=== PATIENT | male | born 1950 | race Caucasian/White ===

== ENCOUNTER 2020-05-20 15:05 | Outpatient (REF) | payer MEDICARE, SELFPAY ==
--- NOTE | 2020-05-20 15:24 | XR_ITS ---
EXAMINATION: XR FOOT, LEFT CLINICAL INFORMATION: Plantar fascitis. Evaluate for heel spur. COMPARISON: None TECHNIQUE: AP, lateral, and oblique views of the left foot. FINDINGS: Bone alignment is normal. No fracture or dislocation is seen. 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 There are mild degenerative changes at the tibiotalar joint. Joint spaces are otherwise normal. There is a plantar calcaneal spur. There is soft tissue arterial calcification. 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 Plantar calcaneal spur.
== END 2020-05-20 15:06 | disposition home or self-care (01) ==
LOC: HO.XRAY 15:05
PROVIDERS: PCP Nurse Practitioner Family; Visit Provider Podiatrist
DX: M72.2 Plantar fascial fibromatosis (principal)
CPT/HCPCS: 73630

== ENCOUNTER 2022-01-08 15:32 | Outpatient (REF) | payer MEDICARE, SELFPAY ==
--- NOTE | ~2022-01-08 | XR_ITS ---
EXAMINATION: XR SHOULDER, LEFT CLINICAL INFORMATION: Pain COMPARISON: None TECHNIQUE: Three views of the left shoulder. FINDINGS: No acute fracture or dislocation is seen. There is question of old trauma to the distal clavicle/coracoclavicular ligament. There is mild arthritis at the glenohumeral joint. There is arthritis at the acromioclavicular joint. There is soft tissue calcification adjacent to the greater tuberosity suggestive of calcific tendinitis. XR/XR shoulder LT min 2V IMPRESSION: No acute fracture or dislocation. Question old trauma to the left distal clavicle/coracoclavicular ligament. Arthritis and soft tissue calcification adjacent to the greater tuberosity.
== END 2022-01-08 15:33 | disposition home or self-care (01) ==
LOC: HO.HMGCX 15:32
PROVIDERS: Visit Provider Physician Assistant
DX: M25.512 Pain in left shoulder (principal)
CPT/HCPCS: 73030

== ENCOUNTER 2022-04-18 11:06 | Emergency (ER) | payer MEDICARE, SELFPAY ==
--- NOTE | ~2022-04-18 | XR_ITS ---
EXAMINATION: XR CHEST CLINICAL INFORMATION: Chest pain COMPARISON: None TECHNIQUE: Frontal view of the chest was obtained. FINDINGS: No significant abnormality is noted involving the heart, lungs, mediastinum, bony thorax or soft tissues. There are degenerative changes of the spine. XR/XR chest 1V IMPRESSION: No evidence for acute disease in the chest.
--- NOTE | 2022-04-18 11:21 | ECG_ITS ---
Test Reason : CP Blood Pressure : / mmHG Vent. Rate : 053 BPM Atrial Rate : 053 BPM P-R Int : 162 ms QRS Dur : 092 ms QT Int : 450 ms P-R-T Axes : 000 062 052 degrees QTc Int : 422 ms Sinus bradycardia Otherwise normal ECG No previous ECGs available Referred By: Generic ED Physician Electronically Signed By:RASHAD HALLMAN
[2022-04-18 11:36] VITALS: BP 138/70; PULSE 54; RESP 19; TEMP 37.2; O2SAT 99; BMI 26.6
[2022-04-18 11:44] LABS: MANUAL DIFF FLAG NO
[2022-04-18 11:46] LABS: Basophils Percent Auto 0.2 % (0-2); Eosinophils Absolute Auto 0.1 X10*3/uL (0.0-0.4); Eosinophils Percent Auto 1.2 % (0-4); Hemoglobin 15.2 g/dl (14.0-18.0); Imm Gran Abs Auto 0.01 X10*3/uL (0.00-0.03); Imm Gran Pct Auto 0.2 % (0.0-0.4); Lymphocytes Absolute Auto 1.9 X10*3/uL (1.2-4.9); Lymphocytes Percent Auto 37.7 % (20-40); Mean Corpuscular HGB Conc 34.5 g/dl (31.0-36.0); Mean Corpuscular Hemoglobin 31.6 pg (27.0-33.0); Mean Corpuscular Volume 91.5 fL (80.0-98.0); Monocytes Absolute Auto 0.4 X10*3/uL (0.1-1.2); Neutrophils Absolute Auto 2.8 x10*3/uL (2.0-8.3); Neutrophils Percent Auto 53.7 % (45-73); Platelet Count 215 X10*3/uL (160-400); Red Blood Count 4.81 X10*6/uL (4.60-5.80); White Blood Count 5.1 X10*3/uL (4.8-10.8)
[2022-04-18 11:59] LABS: Anion Gap 15 (12-20); Blood Urea Nitrogen 15 mg/dL (9-16); Carbon Dioxide 25 mmol/L (22-29); Chloride 103 mmol/L (96-108); Creatinine Clr Calc Pharmacy 66.2; Estimated Glomerular Filt Rate > 60; Glucose Random 206 mg/dL (60-115); Potassium 4.3 mmol/L (3.3-5.1); Sodium 139 mmol/L (135-145)
[2022-04-18 12:04] LABS: Troponin-I High Sensitivity 6.5 ng/L (<3.5-35.0)
--- NOTE | 2022-04-18 15:32 | ED_ITS ---
HPI - Chest Pain General Chief Complaint: Chest Pain Stated Complaint: Chest pain/Weakness Time Seen by Provider: 04/18/22 15:32 Source: patient Mode of arrival: ambulatory Limitations: no limitations History of Present Illness HPI narrative: Patient is a 71 year old male presenting to the emergency department today with chest pain. Patient states that he tested positive for COVID a week ago and over the last few days he has had chest pain when breathing. Patient states that it is epigastric pain and much worse with breathing. Patient denies any dizziness, lightheadedness, abdominal pain, nausea, vomiting, fever, chills, blurry vision, double vision, loss of vision, difficulty breathing, shortness of breath, back pain, night sweats, pain with urination, increased urinary frequency, increased urinary urgency, blood in his urine or stool, syncope or a near syncopal episode, recent trauma or falls, bowel incontinence, bladder incontinence, bowel retention, bladder retention, or any other complaints at this time. MD complaint: chest pain Pain radiation: none Severity: mild Pain scale (0-10): 2 Relieving factors: nothing Exacerbating factors: nothing Treatment prior to arrival: none Related Data Home Medications Medication Instructions Recorded Confirmed flash glucose sensor (FreeStyle 01/08/22 Lloyd 14 Day Sensor kit) insulin aspart U-100 100 unit/mL 1 sliding scale dose subcut 01/08/22 (3 mL) subcutaneous pen (Novolog USEASDIRECTD Flexpen U-100 Insulin aspart) insulin glargine 100 unit/mL (3 12 unit subcut BID 01/08/22 mL) subcutaneous pen (Lantus Solostar U-100 Insulin) metformin 500 mg tablet 500 mg PO DAILY 01/08/22 Previous Rx's Medication Instructions Recorded cyclobenzaprine 10 mg tablet 10 mg PO BEDTIME PRN muscle spasm 01/08/22 #14 tabs Allergies Allergy/AdvReac Type Severity Reaction Status Date / Time shrimp Allergy Anaphylaxis Verified 04/18/22 11:36 Review of Systems Constitutional: Constitutional: Reports no additional constitutional complaints, Denies chills, Denies fever(s) and Denies night sweats Eyes: Eyes: Reports no additional eye complaints, Denies blurry vision, Denies change in vision, Denies diplopia, Denies eye discharge, Denies loss of vision and Denies eye pain ENT: Denies dizziness Cardiovascular: Cardiovascular: Reports no additional cardiovascular complaints, Reports chest pain, Denies lightheadedness, Denies Loss of Consciousness and Denies dyspnea Respiratory: Respiratory: Reports no additional respiratory complaints and Denies dyspnea Gastrointestinal: Gastrointestinal: Reports no additional gastrointestinal complaints, Denies abdominal pain, Denies melena, Denies hematochezia, Denies change in bowel habits and Denies change in stool character Genitourinary: Genitourinary: Reports no additional male genitourinary complaints, Denies hematuria, Denies oliguria, Denies difficulty urinating, Denies dysuria, Denies urinary frequency, Denies urinary hesitancy, Denies urinary incontinence and Denies urinary urgency Musculoskeletal: Musculoskeletal: Reports no additional musculoskeletal complaints, Denies numbness and Denies tingling Neurologic: Denies dizziness, Denies loss of vision, Denies numbness and Denies tingling Psychiatric: Psychiatric: Reports no additional psychiatric complaints Endocrine: Endocrine: Reports no additional endocrine complaints Hematologic/Lymphatic: Hematologic/Lymphatic: Reports no additional hematologic/lymphatic complaints Allergic/Immunologic: Allergic/Immunologic: Reports no additional allergic/immunologic complaints PMFSH Past Medical History Attestation statement: The following information was validated with the patient. Source: old records reviewed Social History Social History Advance Directives: No Advance Directives Information Provided: No Physical Exam Vital Signs: Vital Signs: Last Vital Signs Temp 98.9 F 04/18/22 11:36 Pulse 54 04/18/22 11:36 Resp 19 04/18/22 11:36 BP 138/70 04/18/22 11:36 Pulse Ox 99 04/18/22 11:36 O2 Del Method 04/18/22 11:36 BMI result Body Mass Index 26.6 Const: General: cooperative, no acute distress, alert and awake Nutritional Appearance: well nourished Orientation/consciousness: patient oriented x3 Limitations: no limitations HEENT: Head: Yes normal to inspection and Yes atraumatic Ears: hearing grossly normal bilaterally and external ears normal General nose exam: Normal external nose present, no nasal discharge noted and no epistaxis Face and sinus: Yes normal facial exam, No abrasion and No laceration Mouth: Normal oral and palatal mucosa present, no drooling and no muffled voice Eyes: General: appearance normal, both eyes and all related structures Periorbital: periorbital findings normal Eyelids: Yes eyelids normal Conjunctivae: conjunctivae normal Pupils: Equal, round and reactive pupils present EOM: EOMs intact bilaterally Neck: Neck: Yes normal visual inspection, Yes full ROM and Yes no lymphadenopathy Chest: Chest palpation & inspection: normal inspection of the chest Resp: Effort & Inspection: normal respiratory effort and able to speak in complete sentences Auscultation: clear to auscultation bilaterally Cardio: Rate: regular rate Rhythm: regular rhythm GI: Inspection: Yes normal to inspection Neuro: General: patient oriented x3 and moves all extremities Cranial nerves: Yes Equal, round and reactive pupils present Cognition (Neuro): normal cognition Motor exam (neuro): 5/5 motor strength present throughout Sensory Exam: Normal double simultaneous stimulation for sensation Coordination: [id number] test normal Extrem: General: Yes normal to inspection, Yes full ROM and Yes capillary refill normal Psych: Appearance: grossly normal Mental Status: mental status grossly normal Affect: normal affect Attitude: cooperative Thought process: Normal thought process present Thought content: Normal thought content present Insight: Good insight present (Psych) MDM - Chest Pain MDM Narrative Medical decision making narrative: Patient is a 71 year old male presenting to the emergency department today with chest pain. Patient's physical exam was unremarkable. Patient's blood work was unremarkable. Patient's EKG was unremarkable. Patient's chest x-ray showed no acute process. I explained my physical exam findings as well as all test results to the patient. I answered all questions asked by the patient. I stressed the importance of the patient taking his medication as prescribed. I stressed the importance of the patient following up with his primary care provider. I stressed the importance of the patient returning to the emergency department immediately if his symptoms were to worsen or if he were to develop any dizziness, shortness of breath, difficulty breathing, chest pain, blurry vision, loss of vision, nausea, vomiting, abdominal pain, fever, chills, back pain, or any other complaints. Patient verbalized agreement and understanding with this treatment plan and discharge. Differential Diagnosis Differential diagnosis: Likely atypical chest pain and costochondritis Medical Records Data Attestation: I reviewed the patient's medical records. Lab Data Attestation: I reviewed the patient's lab results. Result diagrams: 04/18/22 11:39 04/18/22 11:39 Labs: Lab Results 04/18/22 04/18/22 04/18/22 Range/Units 11:39 11:39 11:39 WBC 5.1 (4.8-10.8) X10*3/uL RBC 4.81 (4.60-5.80) X10*6/uL Hgb 15.2 (14.0-18.0) g/dl Hct 44.0 (42.0-52.0) % MCV 91.5 (80.0-98.0) fL MCH 31.6 (27.0-33.0) pg MCHC 34.5 (31.0-36.0) g/dl RDW 12.0 (11.0-16.0) % Plt Count 215 (160-400) X10*3/uL MPV 10.0 (9.4-12.4) fL Immature Gran % (Auto) 0.2 (0.0-0.4) % Neut % (Auto) 53.7 (45-73) % Lymph % (Auto) 37.7 (20-40) % [place] % (Auto) 7.0 (2-11) % Eos % (Auto) 1.2 (0-4) % Baso % (Auto) 0.2 (0-2) % Lymph # (Auto) 1.9 (1.2-4.9) X10*3/uL [place] # (Auto) 0.4 (0.1-1.2) X10*3/uL Eos # (Auto) 0.1 (0.0-0.4) X10*3/uL Baso # (Auto) 0.0 (0.0-0.2) X10*3/uL Abs Immat Gran (auto) 0.01 (0.00-0.03) X10*3/uL Absolute Neuts (auto) 2.8 (2.0-8.3) x10*3/uL Absolute Nucleated RBC 0.000 (0.0-0.012) X10*3/uL Nucleated RBC % (auto) 0.0 (0.0-0.2) /100WBC Sodium 139 (135-145) mmol/L Potassium 4.3 (3.3-5.1) mmol/L Chloride 103 (96-108) mmol/L Carbon Dioxide 25 (22-29) mmol/L Anion Gap 15 (12-20) BUN 15 (9-16) mg/dL Creatinine 0.95 (0.5-1.4) mg/dL Estim Creat Clear Calc 66.2 Estimated GFR > 60 Random Glucose 206 H (60-115) mg/dL Calcium 9.0 (8.4-10.2) mg/dL Troponin I High Sens 6.5 (<3.5-35.0) ng/L 04/18/22 Range/Units 15:54 WBC (4.8-10.8) X10*3/uL RBC (4.60-5.80) X10*6/uL Hgb (14.0-18.0) g/dl Hct (42.0-52.0) % MCV (80.0-98.0) fL MCH (27.0-33.0) pg MCHC (31.0-36.0) g/dl RDW (11.0-16.0) % Plt Count (160-400) X10*3/uL MPV (9.4-12.4) fL Immature Gran % (Auto) (0.0-0.4) % Neut % (Auto) (45-73) % Lymph % (Auto) (20-40) % [place] % (Auto) (2-11) % Eos % (Auto) (0-4) % Baso % (Auto) (0-2) % Lymph # (Auto) (1.2-4.9) X10*3/uL [place] # (Auto) (0.1-1.2) X10*3/uL Eos # (Auto) (0.0-0.4) X10*3/uL Baso # (Auto) (0.0-0.2) X10*3/uL Abs Immat Gran (auto) (0.00-0.03) X10*3/uL Absolute Neuts (auto) (2.0-8.3) x10*3/uL Absolute Nucleated RBC (0.0-0.012) X10*3/uL Nucleated RBC % (auto) (0.0-0.2) /100WBC Sodium (135-145) mmol/L Potassium (3.3-5.1) mmol/L Chloride (96-108) mmol/L Carbon Dioxide (22-29) mmol/L Anion Gap (12-20) BUN (9-16) mg/dL Creatinine (0.5-1.4) mg/dL Estim Creat Clear Calc Estimated GFR Random Glucose (60-115) mg/dL Calcium (8.4-10.2) mg/dL Troponin I High Sens 4.6 (<3.5-35.0) ng/L Imaging Data Chest x-ray: Attestation: I personally reviewed and interpreted this imaging study as follows: My impression: No acute process. Radiologist's impression: EXAMINATION: XR CHEST CLINICAL INFORMATION: Chest pain COMPARISON: None TECHNIQUE: Frontal view of the chest was obtained. FINDINGS: No significant abnormality is noted involving the heart, lungs, mediastinum, bony thorax or soft tissues. There are degenerative changes of the spine. XR/XR chest 1V IMPRESSION: No evidence for acute disease in the chest. Dictated By: Maddy Encinas MD Signed By: Electronically signed by Maddy Encinas MD 04/18/22 1219 ECG Data ECG #1: Attestation: I personally reviewed and interpreted this ECG as follows: ECG interpretation date: 04/18/22 ECG interpretation time: 11:31 Prior ECG tracings: not available for review Interpretation: Vent. Rate: 053 BPM ? ? Atrial Rate: 053 BPM P-R Int: 162 ms? QRS Dur: 092 ms QT Int: 450 ms ? ? ? P-R-T2Axes: 000 062 052 degrees QTc Int: 422 ms ? Sinus bradycardia Otherwise normal ECG No previous ECGs available DD/ 1131 Discharge Plan Discharge Clinical Impression: Chest pain, pleuritic Patient Disposition: Home, Self-Care Instructions: Pleurisy (ED) Additional Instructions: Follow up with your primary care provider. Return to the emergency department immediately if your symptoms worsen or if you develop any dizziness, shortness of breath, difficulty breathing, chest pain, blurry vision, loss of vision, nausea, vomiting, abdominal pain, fever, chills, back pain, or any other complaints. Prescriptions: No Action (DME) FreeStyle Lloyd 14 Day Sensor Kit See Rx Instructions .ROUTE Rx Instructions: As directed insulin glargine [Lantus Solostar U-100 Insulin] 100 unit/mL (3 mL) insulin pen 12 unit subcut BID insulin aspart U-100 [Novolog Flexpen U-100 Insulin] 100 unit/mL (3 mL) insulin pen 1 sliding scale dose subcut USEASDIRECTD metformin 500 mg tablet 500 mg PO DAILY cyclobenzaprine 10 mg tablet 10 mg PO BEDTIME PRN (Reason: muscle spasm) Qty: 14 0RF Referrals: Etienne Wesley [employer] [Primary Care Provider] - Interventions: ED Discharge Assessment Last Done: 04/18/22 16:51 Discharge Date/Time: 04/18/22 16:52 Print Language: Pakistani
[2022-04-18 16:21] LABS: Troponin-I High Sensitivity 4.6 ng/L (<3.5-35.0)
== END 2022-04-18 16:52 | disposition home or self-care (01) ==
PROVIDERS: Physician Assistant Medical; Emergency Provider Internal Medicine; PCP Nurse Practitioner Family
DX: R07.89 Other chest pain (principal); R07.81 Pleurodynia; E11.9 Type 2 diabetes mellitus without complications; Z79.899 Other long term (current) drug therapy; Z79.4 Long term (current) use of insulin
CPT/HCPCS: 36415; 71045; 80048; 84484; 85025; 93005; 99283

== ENCOUNTER 2022-12-08 13:16 | Emergency (ER) | payer OTHER, MEDICARE, SELFPAY ==
--- NOTE | ~2022-12-08 | XR_ITS ---
EXAMINATION: XR WRIST, RIGHT CLINICAL INFORMATION: Pain. Rule out fracture. COMPARISON: None available. TECHNIQUE: PA, lateral, and oblique views of the right wrist. FINDINGS: Bone alignment is normal. No fracture or dislocation. Joint spaces are normal. There may be periarticular osteopenia. There are small increased soft tissue densities seen in the dorsal wrist on the lateral view. There is soft tissue arterial calcification. XR/XR wrist RT 2V IMPRESSION: Small increased densities in the dorsal soft tissues of the wrist. Clinical correlation to exclude soft tissue foreign body.
--- NOTE | ~2022-12-08 | XR_ITS ---
EXAMINATION: XR CHEST CLINICAL INFORMATION: Shortness of breath COMPARISON: Frontal view chest 04/18/2022; radiographs left shoulder 01/08/2022 TECHNIQUE: 2 views of the chest were obtained. FINDINGS: The lungs are clear. There is no pneumothorax, pleural reaction, airspace consolidation, groundglass opacity. No hyperinflation. The costophrenic sulci are clear. The heart is normal in size. The hilar and mediastinal contours are unremarkable. No visible acute bony abnormality. XR/XR chest 2V IMPRESSION: Unremarkable examination.
--- NOTE | ~2022-12-08 | CT_ITS ---
EXAMINATION: CT CHEST WITHOUT CONTRAST CLINICAL INFORMATION: Worsening shortness of breath COMPARISON: Chest x-ray of same day. TECHNIQUE: Multidetector volumetric CT imaging of the chest was done. Axial MIP volume rendering provided. Sagittal and coronal reformatted images were obtained. This CT examination was performed using dose optimization techniques as appropriate, variously including the following: *Automated exposure control *Adjustment of mA and/or kV according to patient size (this includes techniques or standardized protocols for targeted exams where dose is matched to indication/reason for exam; i.e. extremities or head) *Use of iterative reconstruction technique DLP: 281 mGy-cm FINDINGS: LUNGS: Central airways are patent. There is some mild bronchial wall thickening present bilaterally. No bronchiectasis is seen. No confluent parenchymal disease. No significant changes of emphysema are seen. Sub-4 mm densities are present with no suspicious lung mass identified. MEDIASTINUM: Heart normal size. No pericardial effusion. No thoracic aortic aneurysm. There is nonocclusive calcified plaque seen within the aortic arch. Visualized thyroid gland appears unremarkable. There are prominent mediastinal lymph nodes present but with only subcarinal lymph nodes measuring 1.1 cm diameter being pathologically enlarged. No hilar lymphadenopathy is appreciated. CORONARY ARTERY CALCIFICATION: Prominent coronary artery calcification is present. PLEURA: There is no pleural effusion. No pleural mass or thickening. AXILLA: No lymphadenopathy. UPPER ABDOMEN: There is an 8 x 7 cm upper pole cyst of the right kidney measuring fluid density in Hounsfield units and not requiring imaging follow-up. OSSEOUS STRUCTURES: No suspicious destructive bony lesions identified. Multilevel degenerative disc disease disease is seen as well as right shoulder degenerative change. CT/CT chest wo IV con IMPRESSION: No significant parenchymal disease identified. Mild subcarinal lymphadenopathy. Large right renal cyst. Fleischner guidelines were followed.
[2022-12-08 13:19] VITALS: BP 171/68; PULSE 69; RESP 18; TEMP 36.1; O2SAT 97; BMI 25.8
--- NOTE | 2022-12-08 13:21 | ED_ITS ---
HPI - SOB/Dyspnea General Chief Complaint: General Medical <ALAN Barrett - Last Filed: 12/08/22 13:26> Stated Complaint: rib pain/ SOB <ALAN Barrett - Last Filed: 12/08/22 13:26> Time Seen by Provider: 12/08/22 16:06 <ALAN Barrett - Last Filed: 12/08/22 13:26> Source: patient <Mirna Mendes MD - Last Filed: 04/11/23 21:20> Mode of arrival: ambulatory <Mirna Mendes MD - Last Filed: 04/11/23 21:20> Limitations: no limitations <Mirna Mendes MD - Last Filed: 04/11/23 21:20> History of Present Illness HPI Narrative: Patient comes to the emergency room complaining of bilateral lower rib pain for 4-5 weeks. Patient states that he has noted that when he goes up the stairs, he becomes short of breath. Patient states that about 4-5 weeks ago he also started cutting down trees, rolling them and it has been a lot of work. Patient denies any chest pain. Patient states that the pain has gradually gotten much worse over the last week. Also, prior to arrival, patient had a mechanical fall and fell on an outstretched hand. Patient complaining of right wrist pain. Patient denies hitting his head, no loss of consciousness, patient is not on blood thinners <Mirna Mendes MD - Last Filed: 04/11/23 21:20> Related Data Home Medications: Home Medications Medication Instructions Recorded Confirmed flash glucose sensor (FreeStyle 01/08/22 Lloyd 14 Day Sensor kit) insulin aspart U-100 100 unit/mL 1 sliding scale dose subcut 01/08/22 (3 mL) subcutaneous pen (Novolog USEASDIRECTD FlexPen U-100 Insulin aspart) insulin glargine 100 unit/mL (3 12 unit subcut BID 01/08/22 mL) subcutaneous pen (Lantus Solostar U-100 Insulin) metformin 500 mg tablet 500 mg PO DAILY 01/08/22 Previous Rx's Medication Instructions Recorded cyclobenzaprine 10 mg tablet 10 mg PO BEDTIME PRN muscle spasm 01/08/22 #14 tabs <ALAN Barrett - Last Filed: 12/08/22 13:26> Allergies/Adverse Reactions: Allergies Allergy/AdvReac Type Severity Reaction Status Date / Time shrimp Allergy Anaphylaxis Verified 12/08/22 13:23 <ALAN Barrett - Last Filed: 12/08/22 13:26> Review of Systems 2 Review of Systems: Constitutional : No Weight loss, No Fever, No Chills, No Night Sweats, No Fatigue, No Malaise ENT/Mouth : No Hearing loss, No Ear Pain, No Nasal Congestion, No Sinus Pain, No Hoarseness, No sore throat, No Rhinorrhea, No Swallowing Difficulty Eyes: No Eye Pain, No Swelling, No Redness, No Foreign Body, No Discharge, No Vision Changes Cardiovascular : No Chest Pain, no orthopnea, no palpitations, no lower extremity edema, complaining of bilateral rib pain with deep inspirations Respiratory : No Cough, No Sputum, No Wheezing, No Smoke Exposure, complaining of exertional Dyspnea Gastrointestinal : No Nausea, No Vomiting, No Diarrhea, No Constipation, No abdominal Pain, No Hematochezia, No Melena Genitourinary : no irregular bleeding, No Dysuria, No Urinary Frequency, No Hematuria, No Urinary Incontinence, No Urgency, No Flank Pain, No Urinary Flow Changes, No Hesitancy Musculoskeletal : Complaining of right wrist pain, Complaining of bilateral lower rib pain, No joint pain, No Myalgias, No Joint Swelling Skin : No Skin Lesions, No rash Neuro : No Weakness, No Numbness, No Paresthesias, No Loss of Consciousness, No Dizziness, No Headache Psych : No Anxiety/Panic, No Depression, No SI/HI/AH/VH, No Social Issues, Heme/Lymph: No Bruising, No Bleeding,No Lymphadenopathy Endocrine : No Polyuria, No Polydipsia, No Temperature Intolerance <Mirna Mendes MD - Last Filed: 04/11/23 21:20> [facility] Past Medical History Medical History: Medical History (Updated 12/09/22 @ 00:45 by Сергей Linder) Diabetes <ALAN Barrett - Last Filed: 12/08/22 13:26> Social History Social History: Social History Smoked in Last 30 Days: No Use of substances other than those prescribed or required for medical reasons: No Advance Directives: No Advance Directives Information Provided: No <ALAN Barrett - Last Filed: 12/08/22 13:26> Physical Exam 2 Vital Signs: Vital Signs: Last Vital Signs Temp 97.0 F 12/08/22 13:19 Pulse 69 12/08/22 13:19 Resp 18 12/08/22 13:19 BP 171/68 H 12/08/22 13:19 Pulse Ox 97 12/08/22 13:19 O2 Del Method Room Air 12/08/22 13:19 BMI result Body Mass Index 25.8 <ALAN Barrett - Last Filed: 12/08/22 13:26> Vital Signs: Last Vital Signs Temp 97.0 F 12/08/22 13:19 Pulse 69 12/08/22 13:19 Resp 18 12/08/22 13:19 BP 171/68 H 12/08/22 13:19 Pulse Ox 97 12/08/22 13:19 O2 Del Method Room Air 12/08/22 13:19 BMI result Body Mass Index 25.8 <Mirna Mendes MD - Last Filed: 04/11/23 21:20> Const: Other: Appearance: Alert. Oriented X3. No acute distress. Eyes: Pupils equal, round and reactive to light. ENT: Pharynx normal. Neck: Normal inspection. Neck supple. No lymph nodes noted. No crepitus CVS: Normal heart rate and rhythm. Pulses normal. Normal S1 and S2 Respiratory: No respiratory distress. Breath sounds normal. No Wheezing. No rales Abdomen: Soft and nontender. No rigidity. No distention. Musculoskeletal: Pain to palpation in lateral aspect of ribs bilaterally, right wrist looks within normal limits, no swelling, able to flex extend. Skin: Skin warm and dry. Normal skin color. Normal skin turgor. Extremities: No lower extremity edema. No Lacerations. No Rash Neuro: Oriented X 3. No motor deficit. No sensory deficit. Moving all extremities. No slurred speech. CN 2 through 12 grossly intact Psych: calm, cooperative, normal affect <Mirna Mendes MD - Last Filed: 04/11/23 21:20> Course Course Course Narrative: RME Patient is a 72 yo male with a PMH of diabetes and hypertension presenting for shortness of breath, bilateral lower rib pain right greater than left for 3-4 weeks. He reports significant tenderness to the bilateral lower ribs, unable to sleep on his side, worse with deep breath. He was doing a lot of tree cutting, but has no trauma. He has also been weak and SOB with exertion. He does not have nausea. hypertensive in triage but no tachycardia or hypoxia. Plan: Chest xray, CBC, CMP, coags, EKG <ALAN Barrett - Last Filed: 12/08/22 13:26> Medical Decision Making Medical Decision Making [facility] Narrative: -my interpretation of CT chest: No fractures, no pneumonia -patient's vital stable, oxygen saturation 97% on room air even with exertion. -patient's source of pain likely musculoskeletal. -patient declined pain medication or muscle relaxants. Patient states that he takes too many medications at home and would prefer to only take Tylenol and ibuprofen which she has at home, respecfuly declined a prescription. <Mirna Mendes MD - Last Filed: 04/11/23 21:20> Lab Data [facility] Lab Attestation statement: I reviewed the patient's lab results. <Mirna Mendes MD - Last Filed: 04/11/23 21:20> Result Diagrams: 12/08/22 13:34 12/08/22 13:34 <ALAN Barrett - Last Filed: 12/08/22 13:26> Labs: Lab Results 12/08/22 Range/Units 13:34 WBC 7.0 (4.8-10.8) X10*3/uL RBC 4.56 L (4.60-5.80) X10*6/uL Hgb 14.4 (14.0-18.0) g/dl Hct 42.1 (42.0-52.0) % MCV 92.3 (80.0-98.0) fL MCH 31.6 (27.0-33.0) pg MCHC 34.2 (31.0-36.0) g/dl RDW 12.5 (11.0-16.0) % Plt Count 235 (160-400) X10*3/uL MPV 9.3 L (9.4-12.4) fL Immature Gran % (Auto) 0.3 (0.0-0.4) % Neut % (Auto) 56.0 (45-73) % Lymph % (Auto) 31.1 (20-40) % [place] % (Auto) 8.3 (2-11) % Eos % (Auto) 3.7 (0-4) % Baso % (Auto) 0.6 (0-2) % Lymph # (Auto) 2.2 (1.2-4.9) X10*3/uL [place] # (Auto) 0.6 (0.1-1.2) X10*3/uL Eos # (Auto) 0.3 (0.0-0.4) X10*3/uL Baso # (Auto) 0.0 (0.0-0.2) X10*3/uL Abs Immat Gran (auto) 0.02 (0.00-0.03) X10*3/uL Absolute Neuts (auto) 3.9 (2.0-8.3) x10*3/uL Absolute Nucleated RBC 0.000 (0.0-0.012) X10*3/uL Nucleated RBC % (auto) 0.0 (0.0-0.2) /100WBC PT 11.1 (10.0-13.1) SEC INR 1.0 (0.9-1.1) APTT 30.3 (26.0-36.4) SEC Sodium 139 (135-145) mmol/L Potassium 4.1 (3.3-5.1) mmol/L Chloride 105 (96-108) mmol/L Carbon Dioxide 26 (22-29) mmol/L Anion Gap 12 (12-20) BUN 19 H (9-16) mg/dL Creatinine 0.78 (0.5-1.4) mg/dL Estim Creat Clear Calc 82.3 Estimated GFR > 60 Random Glucose 129 H (60-115) mg/dL Calcium 9.4 (8.4-10.2) mg/dL Magnesium 2.1 (1.6-2.6) mg/dL Total Bilirubin 0.8 (0.0-1.0) mg/dL Direct Bilirubin 0.2 (0.0-0.5) mg/dL AST 18 (5-37) U/L ALT 18 (0-40) U/L Alkaline Phosphatase 56 (39-117) U/L Troponin I High Sens < 2.7 (<3.5-35.0) ng/L B-Natriuretic Peptide 44 (<100) pg/mL Total Protein 6.9 (6.5-8.0) g/dL Albumin 4.3 (3.5-5.0) g/dL <ALAN Barrett - Last Filed: 12/08/22 13:26> Lab Results 12/08/22 Range/Units 13:34 WBC 7.0 (4.8-10.8) X10*3/uL RBC 4.56 L (4.60-5.80) X10*6/uL Hgb 14.4 (14.0-18.0) g/dl Hct 42.1 (42.0-52.0) % MCV 92.3 (80.0-98.0) fL MCH 31.6 (27.0-33.0) pg MCHC 34.2 (31.0-36.0) g/dl RDW 12.5 (11.0-16.0) % Plt Count 235 (160-400) X10*3/uL MPV 9.3 L (9.4-12.4) fL Immature Gran % (Auto) 0.3 (0.0-0.4) % Neut % (Auto) 56.0 (45-73) % Lymph % (Auto) 31.1 (20-40) % [place] % (Auto) 8.3 (2-11) % Eos % (Auto) 3.7 (0-4) % Baso % (Auto) 0.6 (0-2) % Lymph # (Auto) 2.2 (1.2-4.9) X10*3/uL [place] # (Auto) 0.6 (0.1-1.2) X10*3/uL Eos # (Auto) 0.3 (0.0-0.4) X10*3/uL Baso # (Auto) 0.0 (0.0-0.2) X10*3/uL Abs Immat Gran (auto) 0.02 (0.00-0.03) X10*3/uL Absolute Neuts (auto) 3.9 (2.0-8.3) x10*3/uL Absolute Nucleated RBC 0.000 (0.0-0.012) X10*3/uL Nucleated RBC % (auto) 0.0 (0.0-0.2) /100WBC PT 11.1 (10.0-13.1) SEC INR 1.0 (0.9-1.1) APTT 30.3 (26.0-36.4) SEC Sodium 139 (135-145) mmol/L Potassium 4.1 (3.3-5.1) mmol/L Chloride 105 (96-108) mmol/L Carbon Dioxide 26 (22-29) mmol/L Anion Gap 12 (12-20) BUN 19 H (9-16) mg/dL Creatinine 0.78 (0.5-1.4) mg/dL Estim Creat Clear Calc 82.3 Estimated GFR > 60 Random Glucose 129 H (60-115) mg/dL Calcium 9.4 (8.4-10.2) mg/dL Magnesium 2.1 (1.6-2.6) mg/dL Total Bilirubin 0.8 (0.0-1.0) mg/dL Direct Bilirubin 0.2 (0.0-0.5) mg/dL AST 18 (5-37) U/L ALT 18 (0-40) U/L Alkaline Phosphatase 56 (39-117) U/L Troponin I High Sens < 2.7 (<3.5-35.0) ng/L B-Natriuretic Peptide 44 (<100) pg/mL Total Protein 6.9 (6.5-8.0) g/dL Albumin 4.3 (3.5-5.0) g/dL <Mirna Mendes MD - Last Filed: 04/11/23 21:20> Radiology Impression Discussion of test interpretation with radiology: I have reviewed the radiologist's reading. <Mirna Mendes MD - Last Filed: 04/11/23 21:20> Radiologist Impression: FINDINGS: LUNGS: Central airways are patent. There is some mild bronchial wall thickening present bilaterally. No bronchiectasis is seen. No confluent parenchymal disease. No significant changes of emphysema are seen.? Sub-4 mm densities are present with no suspicious lung mass identified. MEDIASTINUM: Heart normal size. No pericardial effusion. No thoracic aortic aneurysm. There is nonocclusive calcified plaque seen within the aortic arch. Visualized thyroid gland appears unremarkable. There are prominent mediastinal lymph nodes present but with only subcarinal lymph nodes measuring 1.1 cm diameter being pathologically enlarged. No hilar lymphadenopathy is appreciated. CORONARY ARTERY CALCIFICATION: Prominent coronary artery calcification is present. PLEURA: There is no pleural effusion. No pleural mass or thickening.? AXILLA: No lymphadenopathy.? UPPER ABDOMEN: There is an 8 x 7 cm upper pole cyst of the right kidney measuring fluid density in Hounsfield units and not requiring imaging follow-up.? OSSEOUS STRUCTURES: No suspicious destructive bony lesions identified. Multilevel degenerative disc disease disease is seen as well as right shoulder degenerative change.? CT/CT chest wo IV con IMPRESSION: No significant parenchymal disease identified. ? Mild subcarinal lymphadenopathy. ? Large right renal cyst.? Bone alignment is normal. No fracture or dislocation. Joint spaces are normal. There may be periarticular osteopenia. There are small increased soft tissue densities seen in the dorsal wrist on the lateral view.? There is soft tissue arterial calcification. XR/XR wrist RT 2V IMPRESSION: Small increased densities in the dorsal soft tissues of the wrist. Clinical correlation to exclude soft tissue foreign body. <Mirna Mendes MD - Last Filed: 04/11/23 21:20> Discharge Plan Discharge Clinical Impression: Musculoskeletal pain <ALAN Barrett - Last Filed: 12/08/22 13:26> Patient Disposition: Home, Self-Care <ALAN Barrett - Last Filed: 12/08/22 13:26> Instructions: Musculoskeletal Pain (ED) <ALAN Barrett - Last Filed: 12/08/22 13:26> Additional Instructions: Your x-ray of the wrist shows normal bone alignment, no fracture or dislocation. The CT scan of the chest did not show any acute abnormalities. Please follow-up with your primary care physician tomorrow. If you have any worsening or new symptoms, please return to the emergency room or call 911 <ALAN Barrett - Last Filed: 12/08/22 13:26> Prescriptions: No Action (DME) FreeStyle Lloyd 14 Day Sensor Kit See Rx Instructions .ROUTE Rx Instructions: As directed insulin glargine [Lantus Solostar U-100 Insulin] 100 unit/mL (3 mL) insulin pen 12 unit subcut BID insulin aspart U-100 [Novolog FlexPen U-100 Insulin] 100 unit/mL (3 mL) insulin pen 1 sliding scale dose subcut USEASDIRECTD metformin 500 mg tablet 500 mg PO DAILY cyclobenzaprine 10 mg tablet 10 mg PO BEDTIME PRN (Reason: muscle spasm) Qty: 14 0RF <ALAN Barrett - Last Filed: 12/08/22 13:26> Interventions: ED Discharge Assessment Last Done: 12/08/22 17:41 <ALAN Barrett - Last Filed: 12/08/22 13:26> Discharge Date/Time: 12/08/22 17:41 <ALAN Barrett - Last Filed: 12/08/22 13:26>
--- NOTE | 2022-12-08 13:24 | ECG_ITS ---
Test Reason : SOB Blood Pressure : / mmHG Vent. Rate : 053 BPM Atrial Rate : 053 BPM P-R Int : 182 ms QRS Dur : 092 ms QT Int : 438 ms P-R-T Axes : -22 051 041 degrees QTc Int : 410 ms Sinus bradycardia Otherwise normal ECG When compared with ECG of 18-APR-2022 11:31, No significant change was found Referred By: Kendal Ibanez Electronically Signed By:Asher Hayden
[2022-12-08 13:42] LABS: MANUAL DIFF FLAG NO
[2022-12-08 13:43] LABS: Basophils Percent Auto 0.6 % (0-2); Eosinophils Absolute Auto 0.3 X10*3/uL (0.0-0.4); Eosinophils Percent Auto 3.7 % (0-4); Hematocrit 42.1 % (42.0-52.0); Hemoglobin 14.4 g/dl (14.0-18.0); Imm Gran Abs Auto 0.02 X10*3/uL (0.00-0.03); Imm Gran Pct Auto 0.3 % (0.0-0.4); Lymphocytes Absolute Auto 2.2 X10*3/uL (1.2-4.9); Lymphocytes Percent Auto 31.1 % (20-40); Mean Corpuscular HGB Conc 34.2 g/dl (31.0-36.0); Mean Corpuscular Hemoglobin 31.6 pg (27.0-33.0); Mean Corpuscular Volume 92.3 fL (80.0-98.0); Mean Platelet Volume 9.3 fL (9.4-12.4); Monocytes Absolute Auto 0.6 X10*3/uL (0.1-1.2); Monocytes Percent Auto 8.3 % (2-11); Neutrophils Absolute Auto 3.9 x10*3/uL (2.0-8.3); Platelet Count 235 X10*3/uL (160-400); Red Blood Count 4.56 X10*6/uL (4.60-5.80); Red Cell Distribution Width 12.5 % (11.0-16.0)
[2022-12-08 13:51] LABS: Prothrombin Time 11.1 SEC (10.0-13.1)
[2022-12-08 13:54] LABS: Partial Thromboplastin Time 30.3 SEC (26.0-36.4)
[2022-12-08 14:02] LABS: Alanine Aminotransferase 18 U/L (0-40); Albumin Level 4.3 g/dL (3.5-5.0); Alkaline Phosphatase 56 U/L (39-117); Anion Gap 12 (12-20); Aspartate Amino Transferase 18 U/L (5-37); Bilirubin Direct 0.2 mg/dL (0.0-0.5); Bilirubin Total 0.8 mg/dL (0.0-1.0); Blood Urea Nitrogen 19 mg/dL (9-16); Calcium 9.4 mg/dL (8.4-10.2); Carbon Dioxide 26 mmol/L (22-29); Chloride 105 mmol/L (96-108); Creatinine Clr Calc Pharmacy 82.3; Estimated Glomerular Filt Rate > 60; Glucose Random 129 mg/dL (60-115); Magnesium 2.1 mg/dL (1.6-2.6); Potassium 4.1 mmol/L (3.3-5.1); Sodium 139 mmol/L (135-145); Total Protein 6.9 g/dL (6.5-8.0)
[2022-12-08 14:07] LABS: B Type Natriuretic Peptide 44 pg/mL (<100)
[2022-12-08 14:21] LABS: Troponin-I High Sensitivity < 2.7 ng/L (<3.5-35.0)
== END 2022-12-08 17:41 | disposition home or self-care (01) ==
PROVIDERS: Physician Assistant; Emergency Provider Emergency Medicine
DX: R06.02 Shortness of breath (principal); R07.81 Pleurodynia; M79.10 Myalgia, unspecified site; M54.6 Pain in thoracic spine; M25.531 Pain in right wrist; Z79.899 Other long term (current) drug therapy
CPT/HCPCS: 36415; 71046; 71250; 73100; 80048; 80076; 83735; 83880; 84484; 85025; 85610; 85730; 93005; 99284

== ENCOUNTER 2023-12-27 07:06 | Day surgery (SDC) | payer OTHER, SELFPAY ==
[2023-09-30 09:23] VITALS: BMI 26.2
--- NOTE | 2023-09-30 14:05 | P.CONAN_ITS ---
HPI - Anesthesia Eval Consult details Narrative: 72yo M for Colonoscopy Pending cardiac w/u Anesthesia Pre-Procedure Meds Is the patient on any of the following meds?: Any other SGL-1 drugs or drugs that delay gastric emptying (Jardiance) [facility] Past Medical History Medical History (Updated 09/30/23 @ 09:41 by Vale Hurley RN) Chest pain Hypogonadism, male Elevated cholesterol Hypothyroid HTN (hypertension) Diabetes Surgical History Surgical History (Updated 09/30/23 @ 09:23 by Vale Hurley RN) Hx of appendectomy Hx of repair of rotator cuff Hx of knee surgery H/O colonoscopy Social History Social History (Updated 09/30/23 @ 09:40 by Vale Hurley RN) Household Members: Spouse Patient Tobacco Use Status: Former Tobacco user Quit Date: >10 years ago Tobacco use type: Cigarette Meds Allergies Allergy/AdvReac Type Severity Reaction Status Date / Time shrimp Allergy Anaphylaxis Verified 12/08/22 13:23 Home Medications Medication Instructions Recorded Confirmed Last Taken Type flash glucose sensor (FreeStyle 01/08/22 Unknown History Lloyd 14 Day Sensor kit) insulin aspart U-100 100 unit/mL 1 sliding scale dose subcut 01/08/22 09/30/23 Unknown History (3 mL) subcutaneous pen (Novolog USEASDIRECTD FlexPen U-100 Insulin aspart) insulin glargine 100 unit/mL (3 10 unit subcut BID 01/08/22 09/30/23 Unknown History mL) subcutaneous pen (Lantus Solostar U-100 Insulin) metformin 500 mg tablet 500 mg PO DAILY 01/08/22 09/30/23 Unknown History diltiazem HCl 240 mg capsule,24 240 mg PO DAILY 09/30/23 09/30/23 Unknown History hr,extended release empagliflozin 10 mg tablet 10 mg PO DAILY 09/30/23 09/30/23 Unknown History levothyroxine 112 mcg tablet 112 mcg PO DAILY 09/30/23 09/30/23 Unknown History losartan 100 mg tablet 100 mg PO DAILY 09/30/23 09/30/23 Unknown History rosuvastatin 20 mg tablet 20 mg PO DAILY 09/30/23 09/30/23 Unknown History Exam Height,Weight and Vital Signs: Height 5 ft 7.5 in Weight 77.111 kg Narrative Narrative: EKG 11/2022 Vent. Rate : 053 BPM Atrial Rate : 053 BPM P-R Int : 182 ms QRS Dur : 092 ms QT Int : 438 ms P-R-T Axes : -22 051 041 degrees QTc Int : 410 ms Sinus bradycardia Otherwise normal ECG When compared with ECG of 18-APR-2022 11:31, No significant change was found Assessment and Plan Assessment Anesthesia Assessment: Chart Reviewed
--- NOTE | 2023-12-26 08:50 | HO.ANESPROP2 ---
Documented by User: Denise Grossman NP 12/26/23 08:51 HPI - Anesthesia Eval Consult details Narrative: 73yo M for Colonoscopy Anesthesia Pre-Procedure Meds Is the patient on any of the following meds?: SGLT2 Inhib PMFSH Past Medical History Medical History (Updated 09/30/23 @ 09:41 by Vale Hurley, OPHELIA) Chest pain Hypogonadism, male Elevated cholesterol Hypothyroid HTN (hypertension) Diabetes Surgical History Surgical History (Updated 09/30/23 @ 09:23 by Vale Hurley, OPHELIA) Hx of appendectomy Hx of repair of rotator cuff Hx of knee surgery H/O colonoscopy Social History Social History (Updated 09/30/23 @ 09:40 by Vale Hurley RN) Household Members: Spouse Patient Tobacco Use Status: Former Tobacco user Tobacco use type: Cigarette Meds Allergies Allergy/AdvReac Type Severity Reaction Status Date / Time shrimp Allergy Anaphylaxis Verified 12/08/22 13:23 Home Medications ?Medication ?Instructions ?Recorded ?Confirmed ?Last Taken ?Type flash glucose sensor (FreeStyle 01/08/22 Unknown History Lloyd 14 Day Sensor kit) insulin aspart U-100 100 unit/mL 1 sliding scale dose subcut 01/08/22 09/30/23 Unknown History (3 mL) subcutaneous pen (Novolog USEASDIRECTD FlexPen U-100 Insulin aspart) insulin glargine 100 unit/mL (3 10 unit subcut BID 01/08/22 09/30/23 Unknown History mL) subcutaneous pen (Lantus Solostar U-100 Insulin) metformin 500 mg tablet 500 mg PO DAILY 01/08/22 09/30/23 Unknown History diltiazem HCl 240 mg capsule,24 240 mg PO DAILY 09/30/23 09/30/23 12/27/23 History hr,extended release empagliflozin 10 mg tablet 10 mg PO DAILY 09/30/23 09/30/23 12/24/23 History levothyroxine 112 mcg tablet 112 mcg PO DAILY 09/30/23 09/30/23 Unknown History losartan 100 mg tablet 100 mg PO DAILY 09/30/23 09/30/23 Unknown History rosuvastatin 20 mg tablet 20 mg PO DAILY 09/30/23 09/30/23 Unknown History Exam Height,Weight and Vital Signs: Height 5 ft 7.5 in Weight 77.111 kg Assessment and Plan Assessment Anesthesia Assessment: Chart Reviewed Documented by User: Mauro Kevin MD 12/27/23 08:24 PMFSH Past Medical History Medical History (Updated 09/30/23 @ 09:41 by Vale Hurley RN) Chest pain Hypogonadism, male Elevated cholesterol Hypothyroid HTN (hypertension) Diabetes Family History Family history of problems with anesthesia: No Surgical History Surgical History (Updated 09/30/23 @ 09:23 by Vale Hurley RN) Hx of appendectomy Hx of repair of rotator cuff Hx of knee surgery H/O colonoscopy History of Problems with Anesthesia: No Social History Social History (Updated 09/30/23 @ 09:40 by Vale Hurley RN) Household Members: Spouse Patient Tobacco Use Status: Former Tobacco user Tobacco use type: Cigarette Meds Allergies Allergy/AdvReac Type Severity Reaction Status Date / Time shrimp Allergy Anaphylaxis Verified 12/08/22 13:23 Home Medications ?Medication ?Instructions ?Recorded ?Confirmed ?Last Taken ?Type flash glucose sensor (FreeStyle 01/08/22 Unknown History Lloyd 14 Day Sensor kit) insulin aspart U-100 100 unit/mL 1 sliding scale dose subcut 01/08/22 09/30/23 Unknown History (3 mL) subcutaneous pen (Novolog USEASDIRECTD FlexPen U-100 Insulin aspart) insulin glargine 100 unit/mL (3 10 unit subcut BID 01/08/22 09/30/23 Unknown History mL) subcutaneous pen (Lantus Solostar U-100 Insulin) metformin 500 mg tablet 500 mg PO DAILY 01/08/22 09/30/23 Unknown History diltiazem HCl 240 mg capsule,24 240 mg PO DAILY 09/30/23 09/30/23 12/27/23 History hr,extended release empagliflozin 10 mg tablet 10 mg PO DAILY 09/30/23 09/30/23 12/24/23 History levothyroxine 112 mcg tablet 112 mcg PO DAILY 09/30/23 09/30/23 Unknown History losartan 100 mg tablet 100 mg PO DAILY 09/30/23 09/30/23 Unknown History rosuvastatin 20 mg tablet 20 mg PO DAILY 09/30/23 09/30/23 Unknown History Exam Airway Mallampati Class: I TM Dist: >3cm Neck ROM: Full Loose/Missing/Broken Teeth: No Heart: ok Lungs: ok Assessment and Plan Assessment Anesthesia Assessment: Anesthesia Plan Discussed Final Anesthetic Review Family History of Problems with Anesthesia: No History of Problems with Anesthesia: No NPO: Yes ASA Class: II Final Preanesthetic Review: No Changes in Pt Med Stat, Meds/Allgs Chart Reviewed, Consent Obtained/Reviewed and Anes Risks/Benef Reviewed Patient Risk: Low Procedure Risk: Low Anesthetic Plan Anesthetic Plan: MAC: and Agree w/ Assess. and Plan Disposition: Standard PACU
[2023-12-27 07:23] LABS: Glucose, Whole Blood 116 mg/dL (60-115)
[2023-12-27 07:39] VITALS: BP 146/71; PULSE 62; RESP 20; TEMP 36.6; O2SAT 99
--- NOTE | 2023-12-27 08:11 | MHC.SHP ---
Pre-Procedural Eval Section A - 24 Hr Update-Section A only Date of Service: 12/27/23 Section B - Complete if H&P > 30 days Chief Complaint: Encounter for screening for malignant neoplasm of Details of Present Illness: see H&P an d cardiology evaluation Relevant Family History (Specify if Yes): No Relevant Social History: None Present Medications: see Short Stay Collaborative assessment Medical History: No relevant PMH History of Previous Operations: No relevant previous surgery Allergies: Allergies Allergy/AdvReac Type Severity Reaction Status Date / Time shrimp Allergy Anaphylaxis Verified 12/08/22 13:23 Review of Systems Sugical H&P ROS: Negative: Constitution, Cardiovascular, Respiratory, Neurological, Psychiatric, Hem-Onc, Allergic/Immunologic, Gastrointestinal, Genitourinary, Musculoskeletal, Integumentary, Endocrine and Eyes/Ears/Nose/Throat Exam Surgical H&P Exam: Normal: HEENT, Normal: Heart, Normal: Lungs, Normal: Extremities, Normal: Abdomen, Normal: Skin and Normal: Neurological Plan Diagnosis/Plan: Unchanged I have reviewed the history and physical and performed a pertinent physical examination on my patient. No changes have occurred unless specified. Time Spent With Patient Time: Total time managing care of this patient today ____ minutes.
[2023-12-27 08:42] VITALS: BP 113/52; PULSE 56; RESP 18; TEMP 36.1; O2SAT 97
[2023-12-27 08:57] VITALS: BP 131/60; PULSE 58; RESP 18; O2SAT 97
--- NOTE | 2023-12-27 09:09 | OP_ITS ---
DATE OF SERVICE: 12/27/2023 SURGEON: Kelton Holland MD INDICATIONS: Colon cancer screening and prior history of adenomatous colon polyps. PREOPERATIVE DIAGNOSIS: POSTOPERATIVE DIAGNOSIS: PROCEDURE PERFORMED: Colonoscopy to the terminal ileum. ESTIMATED BLOOD LOSS: COMPLICATIONS: ANESTHESIA: Monitored anesthesia care. ASSISTANTS: SPECIMENS: DESCRIPTION OF PROCEDURE: A history and physical was performed. The risks and benefits of the procedure were explained to the patient and informed consent was obtained. The patient was placed in the left lateral decubitus position. A digital rectal exam was performed and was found to be normal. The Olympus pediatric video colonoscope was introduced into the rectum and advanced to the cecum without difficulty. The cecum was identified by transillumination, palpation, and identification of the ileocecal valve. Examination was performed and the scope was removed. He tolerated the procedure well and was returned to the recovery area in stable condition. FINDINGS: The terminal ileum was examined and appeared normal. The visualized colonic mucosa was normal. The quality of the prep was good. There was mild sigmoid diverticulosis. Retroflexed examination showed moderate-sized internal hemorrhoids. IMPRESSION: Normal screening colonoscopy. RECOMMENDATIONS: 1. Follow up as needed. 2. Repeat colonoscopy is recommended in 10 years. This is optional based on age. MD NICA Vinson/RAJWINDERL / [id number]
[2023-12-27 09:12] VITALS: BP 153/74; PULSE 50; RESP 16; TEMP 36.1; O2SAT 99
== END 2023-12-27 09:32 | disposition home or self-care (01) ==
PROVIDERS: PCP Nurse Practitioner Family; Visit Provider Internal Medicine Gastroenterology
PROC: 0DJD8ZZ Inspection of Lower Intestinal Tract, Via Natural or Artificial Opening Endoscopic (ICD-10-PCS; CPT 45378; principal; 2023-12-27 08:20)
DX: Z12.11 Encounter for screening for malignant neoplasm of colon (principal); K57.30 Diverticulosis of large intestine without perforation or abscess without bleeding; Z86.010 Personal history of colon polyps; E11.9 Type 2 diabetes mellitus without complications; I10 Essential (primary) hypertension; Z79.4 Long term (current) use of insulin; Z79.899 Other long term (current) drug therapy
CPT/HCPCS: G0105; 82947; J2704

== ENCOUNTER 2024-03-02 13:23 | Outpatient (AMB) | payer MEDICARE, SELFPAY ==
--- NOTE | 2024-03-02 13:33 | MHC.PC.OV ---
Vital Signs 03/02/24 13:38 Height 5 ft 7.5 in Weight 166 lb BMI 25.6 BP 120/68 Blood Pressure Location Lt brachial Position Sitting Pulse 64 Pulse Source Pulse Oximeter Pulse Oximetry (%) 96 Oxygen Delivery Method Room Air Intake Visit Reasons: New patient PE Intake Note: Pt is here today for new patient visit PE. Allergies shrimp Allergy (Verified 03/02/24 13:39) Anaphylaxis Medication List - Last Reconciled 03/02/24 by Gabriela Patel MD cholecalciferol (vitamin D3) PO diltiazem HCl ER 240 mg PO DAILY empagliflozin 10 mg PO DAILY flash glucose sensor (FreeStyle Lloyd 14 Day Sensor kit) As directed insulin aspart U-100 (Novolog FlexPen U-100 Insulin aspart) 6 units subcut BID insulin glargine (Lantus Solostar U-100 Insulin) 12 units subcut QAM levothyroxine 112 mcg PO DAILY losartan 100 mg PO DAILY magnesium oxide 400 mg PO DAILY metformin 500 mg PO DAILY rosuvastatin 20 mg PO DAILY testosterone (AndroGel) transdermal [vitamin E PO] Tobacco use date assessed: 03/02/24 Fall risk assessment: No Falls in past year Last assessed Fall Risk: 03/02/24 Dental Screening Dental Screen Date: 03/02/24 Did you have a dental visit in the last 12 months?: Yes Did you have a dental problem in the last 6 months where you did not have access to dental care?: No Was dental information given to patient?: Patient has dentist HPI New patient PE HPI Details Patient presents for new patient visit. Past medical history includes type 2 diabetes for 25 years, hypothyroidism hypertension and hyperlipidemia hypogonadism. [facility] and has an appointment with his primary care next month. [facility] Medical History Chest pain Hypogonadism, male Elevated cholesterol Hypothyroid HTN (hypertension) Diabetes Surgical History (Updated 03/02/24 @ 14:31 by Gabriela Patel MD) Hx of appendectomy Hx of repair of rotator cuff Hx of knee surgery H/O colonoscopy Family History Father No problems noted. Mother Breast cancer Social History Household Members: Spouse Housing: House Patient Tobacco Use Status: Former Tobacco user (30-40 years ago) Tobacco use type: Cigarette e-Cigarette/Vaping Use: Never Used service: Yes Current occupational status: retired Cognitive needs: No Hearing needs: No Vision needs: Yes Questionnaire PHQ-9 Over the last 2 weeks, how often have you been bothered by any of the following problems? 1. Little interest or pleasure in doing things: not at all 2. Feeling down, depressed, or hopeless: not at all 3. Trouble falling or staying asleep, or sleeping too much: not at all 4. Feeling tired or having little energy: not at all 5. Poor appetite or overeating: not at all 6. Feeling bad about yourself - or that you are a failure or have let yourself or your family down: not at all 7. Trouble concentrating on things, such as reading the newspaper or watching television: not at all 8. Moving or speaking so slowly that other people could have noticed. Or the opposite - being so fidgety or restless that you have been moving around a lot more than usual: not at all 9. Thoughts that you would be better off or of hurting yourself in some way: not at all Total score: 0 Depression Screening Interpretation: Negative Depression Screening Done: Yes 89861 - PHQ-9 Billing: Yes Source: Developed by Drs. Roque Mclean, Marcie So, Jon Monson and colleagues, with an educational inocencio from [employer]. Thrive Questionnaire Date Thrive assessed: 03/02/24 I am a: Patient What is your living situation today?: I have a steady place to live Within the past 12 months, did the food you bought not last and you didn't have the money to get more?: Often true Within the past 12 months, did you worry whether your food would run out before you got money to buy more?: Often true Do you have trouble paying for medicines?: No Do you have trouble getting transportation to medical appointments?: No Do you have trouble paying your heating and electricity bill?: No Do you have trouble taking care of your child, family member or friend?: No Do you have trouble with day-to-day activities such as bathing, preparing meals, shopping, managing finances, etc.?: No Are you currently unemployed and looking for a job?: No Are you interested in more education?: No Please select the resources that you would like help with: Housing/Residential Currently or been in a relationship where the following occur: I choose not to answer THRIVE Score: 2 AUDIT C Alcohol Use Questionnaire (AUDIT-C) 1. How often do you have a drink containing alcohol?: Never 3. How often do you have six or more drinks on one occasion?: Never Total Score: 0 ARTURO-7 AMB Questionnaire ARTURO-7 Date ARTURO - 7 assessed: 03/02/24 Feeling nervous, anxious, or on edge: 0 = Not at all Not being able to stop or control worryin = Not at all Worrying too much about different things: 0 = Not at all Trouble relaxin = Not at all Being so restless that it is hard to sit still: 0 = Not at all Becoming easily annoyed or irritable: 0 = Not at all Feeling afraid as if something awful might happen: 0 = Not at all Total ARTURO-7 score (0-4 normal; 5-9 mild; 10-14 moderate; 15-21 severe): 0 Source: Developed by Drs. Roque Mclean, Marcie So, Jon Monson and colleagues, with an educational inocencio from [employer]. ARTURO-7 Assessment Billing ARTURO-7 Assessment Tool: ARTURO-7 Assessment 73444 Review of Systems Const All systems reviewed & are unremarkable except as noted in HPI and below Reports no additional complaints Eyes Reports no additional complaints ENT Reports no additional complaints Card Reports no additional complaints Resp Reports no additional complaints GI Reports no additional complaints Reports no additional complaints Physical exam (Primary Care) Vital Signs: Last Vital Signs Pulse 64 03/02/24 13:38 BP 120/68 03/02/24 13:38 Pulse Ox 96 03/02/24 13:38 Oxygen Delivery Method Room Air 03/02/24 13:38 BMI result Body Mass Index 25.6 Tobacco/Smoking Status: Tobacco use Status Tobacco use date assessed 03/02/24 03/02/24 13:47 Patient Tobacco Use Status Former Tobacco user (30-40 03/02/24 13:47 years ago) Tobacco use type Cigarette 03/02/24 13:34 e-Cigarette/Vaping Use Never Used 03/02/24 13:47 PHQ-9: PHQ-9 Score PHQ-9: Total score 0 03/02/24 13:58 Depression Screening Interpretation: Negative Thrive Assessment: Date of Thrive Assessment Date Thrive assessed 03/02/24 03/02/24 13:47 Currently or been in a relationship where the following occur: I choose not to answer Const General: no acute distress HENMT Head: Yes normal to inspection Ears: hearing grossly normal bilaterally Mouth: Normal oral and palatal mucosa present Throat: Yes posterior oropharynx normal Eyes General: appearance normal, both eyes and all related structures Neck Neck: Yes no lymphadenopathy and Yes supple Resp Effort & Inspection: normal respiratory effort Auscultation: clear to auscultation bilaterally Cardio Rhythm: regular rhythm Heart sounds: S1 normal heart sound present and S2 normal heart sound present GI Inspection: Yes normal to inspection Palpation (GI): Soft to palpation Percussion: Yes normal to percussion Auscultation: normal bowel sounds Assessment and Plan Assessment & Plan (1) Diabetes: Comment: x 25 yrs, f/u endo [place] Code(s): E11.9 - Type 2 diabetes mellitus without complications Plan: ADA diet regular physical activity discussed with the patient he will continue same medications. Patient has low fluctuation in daily blood glucose readings. He has not been compliant with ADA diet eating sweets potato chips crackers and drinking orange juice. He [facility] (2) HTN (hypertension): Code(s): I10 - Essential (primary) hypertension Plan: Continue current medications (3) Hypothyroid: Code(s): E03.9 - Hypothyroidism, unspecified Plan: Continue levothyroxine (4) Elevated cholesterol: Code(s): E78.00 - Pure hypercholesterolemia, unspecified Plan: Continue statin (5) Hypogonadism, male: Comment: [facility] Code(s): E29.1 - Testicular hypofunction Coding Level of Care Code New Pt Prev Care >65yr (67222) Diagnoses Diabetes E11.9 HTN (hypertension) I10 Hypothyroid E03.9 Elevated cholesterol E78.00 Hypogonadism, male E29.1 Additional Codes ARTURO-7 Assessment Billing - ARTURO-7 Assessment Tool: ARTURO-7 Assessment [id number] ([id number])
[2024-03-02 13:38] VITALS: BP 120/68; PULSE 64; O2SAT 96; BMI 25.6
== END 2024-03-02 15:23 | disposition home or self-care (01) ==
PROVIDERS: PCP Nurse Practitioner Family; Visit Provider Internal Medicine
DX: Z00.00 Encounter for general adult medical examination without abnormal findings (principal); E11.9 Type 2 diabetes mellitus without complications; I10 Essential (primary) hypertension; E03.9 Hypothyroidism, unspecified; E78.00 Pure hypercholesterolemia, unspecified; E29.1 Testicular hypofunction
CPT/HCPCS: 99397